=== PATIENT | male | born 1960 | race American Indian/Alaskan Native ===

== ENCOUNTER 2021-06-05 09:11 | Inpatient (IN) ==
[2021-06-05] MEDS ORDERED: IOPAMIDOL 100 ML BOTTLE IV ONE (09:12)
[2021-06-05] MEDS ORDERED: KETOROLAC 30 MG/ML VIAL IV ONE (09:42)
[2021-06-05] MEDS ORDERED: 0.9 % SODIUM CHLORIDE 1,000 ML IV ONE (09:42)
[2021-06-05 09:56] LABS: POC Creatinine 0.8 mg/dL (0.6-1.2)
[2021-06-05 10:36] LABS: Basophils # (Auto) 0.07 K/mcL (0.00-0.30); Basophils % (Auto) 0.7 % (0.0-2.0); Eosinophils # (Auto) 0.13 K/mcL (0.00-0.70); Eosinophils % (Auto) 1.3 % (0.0-7.0); Hemoglobin 14.4 g/dL (13.7-17.5); Lymphocytes # (Auto) 0.98 K/mcL (1.50-4.80); Lymphocytes % (Auto) 9.5 % (15.5-49.0); Mean Cell Volume 88.6 fL (80.0-100.0); Mean Corpuscular HGB Conc 34.3 g/dL (31.0-36.0); Mean Platelet Volume 10.1 fL (7.4-10.4); Monocytes # (Auto) 0.49 K/mcL (0.10-0.90); Monocytes % (Auto) 4.8 % (1.0-12.0); Neutrophils % (Auto) 83.7 % (38.0-78.0); Platelet Count 177 K/mcL (140-440); RBC 4.74 M/mcL (4.63-6.08); Red Cell Distribution Width 13.9 % (11.5-14.5); WBC 10.3 K/mcL (4.5-11.0)
[2021-06-05 11:01] LABS: ALT/SGPT 46 U/L (<40); AST/SGOT 70 U/L (<40); Albumin 3.8 gm/dL (3.2-5.2); Albumin/Globulin Ratio 1.2 (1.0-2.3); Alkaline Phosphatase 143 U/L (39-117); Bilirubin,Total 1.3 mg/dL (0.1-1.0); Blood Urea Nitrogen 8 mg/dL (8-23); Calcium 8.6 mg/dL (8.6-10.4); Carbon Dioxide 19 mmol/L (22-30); Chloride 108 mmol/L (96-108); Globulin 3.2 gm/dL (2.2-3.7); Glomerular Filtration Rate 96; Glucose 114 mg/dL (70-105)
--- NOTE | 2021-06-05 11:03 | Cat Scan Report ---
CLINICAL INFORMATION: Right upper quadrant pain COMPARISON: None. TECHNIQUE: Following enteric contrast, 80 cc of Isovue-370 were injected intravenously, and 60 seconds later, 0.625 mm helical slices were obtained from the mid heart through the subtrochanteric regions. Following reconstruction, 2.5 mm sagittal, coronal and axial reformatted images were processed and reviewed at bone, lung and soft tissue windows. Five minutes later, 0.625 mm helical slices were obtained from the mid heart through the kidneys and viewed at soft tissue windows.The exam was performed using radiation dose optimization techniques including, but not limited to, automated exposure control, adjustment of the mA and/or kV according to patient size and use of iterative reconstruction technique. FINDINGS: The lung bases show mild chronic bronchitis with scattered scarring and/or atelectasis. There are no effusions. The visualized heart is grossly normal in size Abdominal images show multiple small stones layering dependently within the gallbladder. Gallbladder is mildly enlarged. Scattered calcification within the gallbladder wall suggests porcelain gallbladder-no evidence of cholecystitis. The intrahepatic, common hepatic and common bile ducts are normal caliber: CBD is 5 mm. Hepatic cirrhosis is noted diminutive liver with asymmetric caudate lobe enlargement, or dural surface irregularity and inhomogeneous attenuation . No evidence of hepatoma. Portal hypertension noted with dilatation of the portal vein and varices in the perisplenic, perigastric and periesophageal regions. There is also recanalization umbilical vein. The spleen is normal in size. Both kidneys, adrenal glands, pancreas and aorta, including aortic branches are normal in size configuration and attenuation without focal lesion. There is no free air, free fluid or adenopathy. Images through the pelvis show prostatic seminal vesicles and urinary bladder are normal. The stomach and small bowel are grossly normal. Appendix is not identified with certainty, but no abnormality in the appendix region. Scattered sigmoid diverticula noted-large bowel otherwise normal. Bone windows show degeneration lumbar spine, but no focal osseous lesion. IMPRESSION: 1. Cholelithiasis. No CT evidence for associated cholecystitis. 2. Cirrhosis with portal hypertension and varices in the paraesophageal, gastric and splenic region. Recanalization of the umbilical vein. No ascites. Spleen remains normal in size. 3. Sigmoid diverticulosis, but no evidence of diverticulitis. Interpreted and Authenticated by: Leonard Baca 06/05/21
--- NOTE | 2021-06-05 12:25 | Ultrasound Report ---
CLINICAL INFORMATION: Right upper quadrant pain COMPARISON: None. FINDINGS: Multiple stones present within the gallbladder. Gallbladder wall is normal thickness-3 mm. No focal tenderness over the gallbladder. Common bile duct is normal with 5 mm. Liver is diminutive with irregular cortical surface with inhomogeneous echotexture compatible with known cirrhosis. No evidence of hepatoma. Recanalized umbilical vein noted with mild enlargement of the portal vein. No ascites. Both kidneys, spleen, pancreas and aorta are normal. IMPRESSION: 1. Cholelithiasis. No sonographic evidence of cholecystitis. Common bile duct is normal caliber. 2. Cirrhosis Interpreted and Authenticated by: Leonard Baca 06/05/21
--- NOTE | 2021-06-05 13:30 | Internal Med History&Physical ---
HPI History of Present Illness Patient information: Note initiated : 06/05/21 at 1:27 pm Service Date, if different from initiated Date: [] Patient: Blane Gibson a 60 y/o M admitted on for abd pain. Chief Complaint: [abdominal pain] Chief complaint: abdominal pain History of present illness: Mr. Gibson is a 60 year old M history of alcoholism quit alcohol drinking 6 years ago, alcoholic cirrhosis with portal hypertension's, marijuana smoker, presenting with 1 day history of acute onset epigastric abdominal pain. No prior recent similar episode. This morning at around 530 he woke up and after having a bowel movement, he started to have acute onset epigastric abdominal pain. The severity of the pain was graded at 8 out of 10. It was pressure-like and punching in nature, constant. No associated alleviating or exacerbating factors. The pain would also radiates to the right upper quadrant abdomen. Denies any nausea vomiting diarrhea or constipation's. He is also committing of chills but denies any fever or diaphoresis. No associated trauma or injury. He has some outside food last night but the son who also ate the same food is totally asymptomatic. Labs significant for lack of leukocytosis with WBC 10.3. Total bili 1.3, AST ALT 70 and 46, respectively. Alkaline phosphatase 143. Lipase 416. CT of the abdomen and pelvis shows cholelithiasis with no CT evidence of associated Flak[place] cystitis. It also shows cirrhosis with portal hypertension and varices in the paraesophageal gastric and splenic region. No ascites. Spleen remains normal in size. Sigmoid diverticulosis with no evidence of diverticulitis. Abdominal ultrasound again showing cholelithiasis with no sonographic evidence of cholecystitis. Common bile duct is normal caliber. Again it shows cirrhosis. Constitutional Constitutional: Absent chills, excessive sweating, fatigue, fever(s) or weakness EENT Eyes: Absent blurry vision, change in vision, loss of vision or other visual disturbances Ears: Absent decreased hearing or tinnitus Nose, mouth and throat: Absent abnormal hearing, dry mouth, headache(s), nasal congestion or sore throat Cardiovascular Cardiovascular: Absent chest pain, chest pain at rest, edema, irregular heart rhythm or palpatations Respiratory Respiratory: Absent cough, dyspnea or wheezing Gastrointestinal Gastrointestinal: Present abdominal pain; Absent constipation, diarrhea, nausea or vomiting Musculoskeletal Musculoskeletal: Absent back pain, deformity, limited range of motion, muscle cramps, muscle weakness or numbness Integumentary Integumentary: Absent lesions, rash or wounds Neurological Neurological: Absent focal weakness, headache(s) or numbness Psychiatric Psychiatric: Absent anxiety, depression or hallucinations PFSH PFSH All Active Problems (Updated 06/05/21 @ 13:34 by Prasanna Rabago MD) Alcoholic cirrhosis of liver without ascites (Acute) Obesity (BMI 30.0-34.9) (Acute) Gallstone pancreatitis (Acute) Cellulitis and abscess of leg (Acute) Medical History (Updated 06/05/21 @ 13:34 by Prasanna Rabago MD) Cellulitis and abscess of leg MEDS/ALLERGIES Home Medications and Allergies Home Medications Medication Instructions Recorded Confirmed Type No Known Home Meds 06/05/21 06/05/21 History Allergies Allergy/AdvReac Type Severity Reaction Status Date / Time No Known Drug Allergies Allergy Verified 06/05/21 09:15 EXAM Constitutional Vitals: Temp Pulse Resp BP Pulse Ox 36.9 C 59 L 22 132/73 93 06/05/21 09:12 06/05/21 13:18 06/05/21 09:12 06/05/21 13:16 06/05/21 13:18 General appearance: cooperative and no acute distress Head Head exam: Present atraumatic and normocephalic Eye Eye exam: Present EOMI and PERRL Additional comments: Scrotal icterus ENT ENT exam: Present mucous membranes moist, normal exam and normal external ear exam Neck Neck exam: Present normal inspection; Absent lymphadenopathy, tenderness or thyromegaly Respiratory Respiratory exam: Absent accessory muscle use, respiratory distress or wheezes Cardiovascular Cardiovascular exam: Present normal rate and rhythm; Absent JVD GI/Abdominal GI/Abdominal exam: Present normal bowel sounds, soft and tenderness; Absent distended, guarding, organomegaly or rebound Additional comments: Tenderness to palpations in epigastrium, negative for guarding rebound tenderness. Nondistended abdomen. No fluid wave. No caput medusae. Rectal Rectal exam: Present deferred Extremities Exam Extremities exam: Present full ROM, normal capillary refill and normal inspection; Absent tenderness Neurological Exam Neurological exam: Present alert, CN II-XII intact and oriented X3; Absent motor sensory deficit Psychiatric Psychiatric exam: Present normal affect and normal mood; Absent anxious or depressed Skin Skin exam: Present dry and intact DATA Data Completed and Pending Labs: Labs from last 24 hours 06/05/21 06/05/21 09:45 09:45 WBC 10.3 RBC 4.74 Hgb 14.4 Hct 42.0 MCV 88.6 MCH 30.4 MCHC 34.3 RDW 13.9 Plt Count 177 MPV 10.1 Neut % (Auto) 83.7 H Lymph % (Auto) 9.5 L [place] % (Auto) 4.8 Eos % (Auto) 1.3 Baso % (Auto) 0.7 Lymph # (Auto) 0.98 L [place] # (Auto) 0.49 Eos # (Auto) 0.13 Baso # (Auto) 0.07 Absolute Neutrophils 8.62 H Sodium 139 Potassium 3.4 Chloride 108 Carbon Dioxide 19 L Anion Gap 12.0 BUN 8 Creatinine 0.8 POC Creatinine 0.8 GFR Calculation 96 Glucose 114 H Calcium 8.6 Total Bilirubin 1.3 H AST 70 H ALT 46 H Alkaline Phosphatase 143 H Total Protein 7.0 Albumin 3.8 Globulin 3.2 Albumin/Globulin Ratio 1.2 Lipase 416 H A/P Assessment and plan (1) Gallstone pancreatitis: Status: Acute (2) Obesity (BMI 30.0-34.9): Status: Acute (3) Alcoholic cirrhosis of liver without ascites: Status: Acute Narrative A/P Narrative: Assessment and Plans: 1. Gallstone pancreatitis: Admit to inpatient med surg NPO with IV fluid, NS@100cc/hr, lower rate than otherwise due to history of cirrhosis, trying to avoid ascites Consult general surgery, Dr. Santizo, recs. appreciated. Probably not a good surgical candidate due to elevated bleeding risk from cirrhosis and portal HTN [place] PRN moderate pain Morphine IV PRN severe pain Zofran IV PRN nausea vomiting CMP in the morning to trend LFTs 2. Alcoholic cirrhosis without ascites: CMP in the morning to trend LFTs 3. Obesity BMI 30.0-34.9: Front Facer patient on life style modifications including regular exercise and h ealthy diet in order to lose weight GI ppx: oral PPI DVT ppx: Lovenox Code status: Full Prognosis: stable Disposition: inpatient med surg Time Spent With Patient Time: Total time spent is greater than 50% in coordination of care (as documented) at patient's floor/unit and/or counseling patient: Total time spent with greater than 50% in coordination of care (as documented) at patient's floor/unit and/or counseling patient:: Greater than 35 minutes
--- NOTE | 2021-06-05 13:59 | General Surgery Consult Note ---
HPI Data of Consult Consult date: 06/05/21 Requesting physician: Prasanna Rabago Primary Care Provider: ISAMAR Godfrey Consult Narrative Patient Information: Note initiated : 06/05/21 at 1:54 pm Service Date, if different from initiated Date: [] Patient: Blane Gibson 60 y/o M admitted on for abd pain. Chief Complaint: [] Chief complaint: Abdominal pain Reason for consult: Acute pancreatitis cc:: CC: 60-year-old male who is seen in the emergency room for acute abdominal pain. He awakened this morning with mild nausea and epigastric with right upper quadrant pain. He states that he tried to drink coffee but had poor taste. He had nausea but no vomiting. He was seen in the emergency room where labs revealed minimal elevation of bilirubin AST, ALT, alkaline phosphatase. CT of the abdomen shows advanced cirrhotic liver disease with extensive varices and recanalization of the veins of the abdominal wall including the umbilical vein. He has evidence of small gallstones but no inflammation around the gallbladder and no dilation of the ducts. This was confirmed by ultrasound. He does not have any right upper quadrant tenderness. Patient has a long history of heavy alcohol use but states that he has not had any alcohol for a few years. He does not remember having pancreatitis in the past. Biliary ducts by ultrasound are normal. Serum lipase is 416. PFSH PFSH All Active Problems (Updated 06/05/21 @ 14:03 by Digna Santizo MD) Cholelithiasis (Acute) Acute pancreatitis (Acute) Alcoholic cirrhosis of liver without ascites (Acute) Obesity (BMI 30.0-34.9) (Acute) Gallstone pancreatitis (Acute) Cellulitis and abscess of leg (Acute) Medical History (Updated 06/05/21 @ 14:03 by Digna Santizo MD) Cellulitis and abscess of leg MEDS/ALLERGIES Home Medications and Allergies Home Medications Medication Instructions Recorded Confirmed Type No Known Home Meds 06/05/21 06/05/21 History Allergies Allergy/AdvReac Type Severity Reaction Status Date / Time No Known Drug Allergies Allergy Verified 06/05/21 09:15 Physical Examination Vital Signs Vital signs: Temp Pulse Resp BP Pulse Ox 98.5 F 59 L 22 132/73 93 06/05/21 09:12 06/05/21 13:18 06/05/21 09:12 06/05/21 13:16 06/05/21 13:18 General physical appearance General physical exam: well developed, well nourished, no distress, moderate pain and obese Eyes Eye exam: PERRL and normal ocular movement; negative icteric ENT ENT exam: normal mucosa, no hearing loss, no congestion and poor retirement Head Head exam IM: Present atraumatic, normal inspection and normocephalic Neck Neck exam: no masses, no bruits, trachea midline, no lymphadenopathy and no venous distension Cardiovascular Cardiovascular exam IM: Present normal rate and rhythm, RRR, +S1 and +S2; Absent gallop or JVD Respiratory Respiratory exam: normal expansion, normal respiratory effort and clear to auscultation Abdomen Abdomen: Present soft and tender (Mild epigastric and left upper quadrant tenderness; no guarding or rebound; no right upper quadrant tenderness) Integumentary Integumentary: Present no rash, no growths and no abnormal pigmentation Musculoskeletal Musculoskeletal: Present normal gait and normal posture Psychiatric Psychiatric: Present oriented to time, oriented to person, oriented to place, speech is normal and memory intact Results Labs Result diagrams: 06/05/21 09:45 06/05/21 09:45 Labs: Abnormal lab results 06/05/21 06/05/21 Range/Units 09:45 09:45 Neut % (Auto) 83.7 H (38.0-78.0) % Lymph % (Auto) 9.5 L (15.5-49.0) % Lymph # (Auto) 0.98 L (1.50-4.80) K/mcL Absolute Neutrophils 8.62 H (1.80-8.00) K/mcL Carbon Dioxide 19 L (22-30) mmol/L Glucose 114 H (70-105) mg/dL Total Bilirubin 1.3 H (0.1-1.0) mg/dL AST 70 H (<40) U/L ALT 46 H (<40) U/L Alkaline Phosphatase 143 H (39-117) U/L Lipase 416 H (7-60) U/L Diabetes panel 06/05/21 Range/Units 09:45 Sodium 139 (133-145) mmol/L Potassium 3.4 (3.3-5.1) mmol/L Chloride 108 (96-108) mmol/L Carbon Dioxide 19 L (22-30) mmol/L BUN 8 (8-23) mg/dL Creatinine 0.8 (0.7-1.2) mg/dL Glucose 114 H (70-105) mg/dL Calcium 8.6 (8.6-10.4) mg/dL AST 70 H (<40) U/L ALT 46 H (<40) U/L Alkaline Phosphatase 143 H (39-117) U/L Total Protein 7.0 (5.9-8.4) gm/dL Albumin 3.8 (3.2-5.2) gm/dL Calcium panel 06/05/21 Range/Units 09:45 Calcium 8.6 (8.6-10.4) mg/dL Albumin 3.8 (3.2-5.2) gm/dL Pituitary panel 06/05/21 Range/Units 09:45 Sodium 139 (133-145) mmol/L Potassium 3.4 (3.3-5.1) mmol/L Chloride 108 (96-108) mmol/L Carbon Dioxide 19 L (22-30) mmol/L BUN 8 (8-23) mg/dL Creatinine 0.8 (0.7-1.2) mg/dL Glucose 114 H (70-105) mg/dL Calcium 8.6 (8.6-10.4) mg/dL Adrenal panel 06/05/21 Range/Units 09:45 Sodium 139 (133-145) mmol/L Potassium 3.4 (3.3-5.1) mmol/L Chloride 108 (96-108) mmol/L Carbon Dioxide 19 L (22-30) mmol/L BUN 8 (8-23) mg/dL Creatinine 0.8 (0.7-1.2) mg/dL Glucose 114 H (70-105) mg/dL Calcium 8.6 (8.6-10.4) mg/dL Total Bilirubin 1.3 H (0.1-1.0) mg/dL AST 70 H (<40) U/L ALT 46 H (<40) U/L Alkaline Phosphatase 143 H (39-117) U/L Total Protein 7.0 (5.9-8.4) gm/dL Albumin 3.8 (3.2-5.2) gm/dL All other labs normal. A/P Assessment and plan (1) Acute pancreatitis: Status: Acute (2) Alcoholic cirrhosis of liver without ascites: Status: Acute (3) Obesity (BMI 30.0-34.9): Status: Acute (4) Cholelithiasis: Status: Acute Narrative A/P Narrative: Patient does not have any history or clinical findings to suggest biliary pancreatitis. The minimal elevation in transaminases is probably related to his primary cirrhotic liver disease rather than biliary ductal disease. His hepatic and common hepatic ducts are normal. Recommend medical treatment of his pancreatitis with delayed consideration for cholecystectomy since the potential for catastrophic results in the presence of advanced cirrhotic liver disease is extremely high. If he should need to have cholecystectomy it should be performed at a tertiary center with multiple specialties available including hepatology, hematology, advanced blood bank and multiple surgeons. Time Spent With Patient Time: Total time spent is greater than 50% in coordination of care (as documented) at patient's floor/unit and/or counseling patient:
[2021-06-05] MEDS ORDERED: morphine 4 MG/ML VIAL IV PRN (15:24)
[2021-06-05] MEDS ORDERED: HYDROcodone/APAP 5/325MG TABLET PO PRN (15:24)
[2021-06-05] MEDS ORDERED: ZOLPIDEM 5 MG TABLET PO PRN (15:24)
[2021-06-05] MEDS ORDERED: ONDANSETRON 4 MG/2 ML VIAL IV PRN (15:24)
[2021-06-05] MEDS ORDERED: IPRATROPIUM/ALBUTEROL 3 ML AMPUL.NEB NEB PRN (15:24)
[2021-06-05] MEDS ORDERED: ACETAMINOPHEN 325 MG TABLET PO PRN (15:24)
[2021-06-05] MEDS: 0.9 % SODIUM CHLORIDE 1,000 ML IV SCH (15:43)
[2021-06-05] MEDS: 0.9 % SODIUM CHLORIDE 10 ML SYRINGE IV SCH ×2 (15:43→21:07)
[2021-06-05] MEDS: SENNOSIDES 1 TABLET PO SCH (21:06)
[2021-06-05] MEDS: PANTOPRAZOLE 40 MG TABLET PO SCH (21:06)
[2021-06-05] MEDS: DOCUSATE SODIUM 100 MG CAPSULE PO SCH (21:06)
[2021-06-06] MEDS: 0.9 % SODIUM CHLORIDE 1,000 ML IV SCH ×3 (01:20→21:11)
--- NOTE | 2021-06-06 02:00 | Emergency Department Note ---
Abdominal Pain HPI General Chief Complaint: Abdominal Pain Stated Complaint: abd. pain Time Seen by Provider: 06/05/21 09:42 Source: patient and family (Son contributed to history) Mode of arrival: ambulatory Limitations: no limitations History of Present Illness HPI Narrative: Narrative: 60-year-old male presents emerged department accompanied by his son because of acute abdominal pain that began approximately 05 day of presentation patient described the pain as an 8 out of 10 sharp pain located primarily in the epigastric area and right upper quadrant. There is no associated nausea or vomiting at this time. Pain is constant. Nothing makes it better or worse. No radiation of the pain to the back. Denies prior similar episode. Patient does have significant alcohol and opiate addiction history but ceased using them 6 years ago. Related Data Home Medications Medication Instructions Recorded Confirmed No Known Home Meds 06/05/21 06/05/21 Allergies Allergy/AdvReac Type Severity Reaction Status Date / Time No Known Drug Allergies Allergy Verified 06/05/21 09:15 Review of Systems ROS ROS Narrative: Narrative: Constitutional: Denies fever ENT ED: Denies throat pain or rhinorrhea Cardiovascular: Denies chest pain Respiratory: Denies shortness of breath or cough Gastrointestinal: Reports abdominal pain; Denies nausea Genitourinary: Denies dysuria Musculoskeletal: Denies back pain Integumentary: Denies rash Neurological: Denies headache Psychiatric: Denies anxiety Hematological/Lymphatic: Denies easy bleeding Allergic/Immunologic: Denies facial swelling PFSH Narrative Patient History Narrative: Narrative: Medical/Surgical/Family History All Active Problems (Updated 06/06/21 @ 02:11 by Kingsley Redman MD) Acute gallstone pancreatitis (Acute) Cholelithiasis (Acute) Cholelithiasis (Acute) Acute pancreatitis (Acute) Alcoholic cirrhosis of liver without ascites (Acute) Obesity (BMI 30.0-34.9) (Acute) Gallstone pancreatitis (Acute) Cellulitis and abscess of leg (Acute) Medical History Cellulitis and abscess of leg Social History Smoking Status: Former smoker Exam Narrative Narrative: Narrative: General is a well-developed well-nourished older man lying in bed in distress who appears stoic. General Limitations: no limitations General appearance: Present alert and in distress Head Head: Present atraumatic and normocephalic Eye Eye: Present normal appearance and EOMI Neck Neck: Present normal inspection and trachea midline Respiratory Respiratory: Present normal lung sounds bilaterally; Absent respiratory distress, rales/crackles or wheezes Cardiovascular Cardiovascular: Present regular rate and normal rhythm Adbominal Abdominal: Present soft and tenderness (Primarily right upper quadrant and epigastric area without rebound referred or guarding.) Extremities Extremities: Present normal inspection and full ROM; Absent tenderness Back Back: Present normal inspection Neurological Neurological: Present alert and oriented X3 Psychiatric Psychiatric: Present normal affect and normal mood Skin Skin: Present warm (WNL) and dry Course Vital Signs Vital signs: Vital Signs Temperature 98.5 F 06/05/21 09:12 Pulse Rate 66 06/05/21 09:12 Respiratory Rate 22 06/05/21 09:12 Blood Pressure 116/65 06/05/21 09:12 Pulse Oximetry (%) 96 06/05/21 09:12 Temperature 98.3 F 06/05/21 22:47 Pulse Rate 60 06/05/21 22:47 Respiratory Rate 20 06/05/21 22:47 Blood Pressure 119/72 06/05/21 22:47 Pulse Oximetry (%) 98 06/05/21 22:47 MDM MDM Narrative Medical decision making narrative: Narrative: 60-year-old male presents to the emerge department with acute right upper quadrant and epigastric abdominal pain. Differential diagnosis includes acute biliary colic, acute cholecystitis, ribeiro creatitis, peptic ulcer disease, other pathology. IV was obtained and patient was bolused a liter of normal saline. Patient was medicated with Toradol [address] scan was obtained which revealed cholelithiasis without cholecystitis. No pancreatic abnormality noted. Blood work returned with elevated lipase of over 400 and mildly elevated LFTs. Patient also had portal vein hypertension with varices. Case was discussed with Dr. Rabago the hospitalist on duty. He agreed to admit the patient. He requested I consult surgery. I spoke to Dr. Rolando Santizo who suggested the patient did not have acute cholecystitis and was a high risk surgical case because of the portal vein hypertension and lower esophageal varices which would likely require surgery at a higher level facility if any surgery was required at all. Patient had normal white count and normal hemoglobin. Patient had normal electrolytes with a mildly low bicarb. Glucose minimally elevated. Lab Data Result diagrams: 06/05/21 09:45 06/05/21 09:45 Labs: Lab Results 06/05/21 06/05/21 Range/Units 09:45 09:45 WBC 10.3 (4.5-11.0) K/mcL RBC 4.74 (4.63-6.08) M/mcL Hgb 14.4 (13.7-17.5) g/dL Hct 42.0 (40.1-51.0) % MCV 88.6 (80.0-100.0) fL MCH 30.4 (26.0-34.0) pg MCHC 34.3 (31.0-36.0) g/dL RDW 13.9 (11.5-14.5) % Plt Count 177 (140-440) K/mcL MPV 10.1 (7.4-10.4) fL Neut % (Auto) 83.7 H (38.0-78.0) % Lymph % (Auto) 9.5 L (15.5-49.0) % [place] % (Auto) 4.8 (1.0-12.0) % Eos % (Auto) 1.3 (0.0-7.0) % Baso % (Auto) 0.7 (0.0-2.0) % Lymph # (Auto) 0.98 L (1.50-4.80) K/mcL [place] # (Auto) 0.49 (0.10-0.90) K/mcL Eos # (Auto) 0.13 (0.00-0.70) K/mcL Baso # (Auto) 0.07 (0.00-0.30) K/mcL Absolute Neutrophils 8.62 H (1.80-8.00) K/mcL Sodium 139 (133-145) mmol/L Potassium 3.4 (3.3-5.1) mmol/L Chloride 108 (96-108) mmol/L Carbon Dioxide 19 L (22-30) mmol/L Anion Gap 12.0 (8.0-16.0) BUN 8 (8-23) mg/dL Creatinine 0.8 (0.7-1.2) mg/dL POC Creatinine 0.8 (0.6-1.2) mg/dL GFR Calculation 96 Glucose 114 H (70-105) mg/dL Calcium 8.6 (8.6-10.4) mg/dL Total Bilirubin 1.3 H (0.1-1.0) mg/dL AST 70 H (<40) U/L ALT 46 H (<40) U/L Alkaline Phosphatase 143 H (39-117) U/L Total Protein 7.0 (5.9-8.4) gm/dL Albumin 3.8 (3.2-5.2) gm/dL Globulin 3.2 (2.2-3.7) gm/dL Albumin/Globulin Ratio 1.2 (1.0-2.3) Lipase 416 H (7-60) U/L ED POC Tests ED POC Tests: MANOLO - SARS Antigen Negative Discharge Plan Patient/Caregiver Discharge Instructions Pt seen by DIRECTOR MEDICAL SURGICAL/PA only: No Clinical Impression: Acute gallstone pancreatitis Cholelithiasis Qualifiers: Cholelithiasis location: gallbladder Cholecystitis presence: without cholecystitis Patient Disposition: Xfer As Inpt ([facility]) Condition: Fair Discharge Date/Time: 06/05/21 15:15
[2021-06-06] MEDS: 0.9 % SODIUM CHLORIDE 10 ML SYRINGE IV SCH ×3 (05:23→21:05)
[2021-06-06 07:03] LABS: Basophils # (Auto) 0.06 K/mcL (0.00-0.30); Basophils % (Auto) 1.2 % (0.0-2.0); Eosinophils # (Auto) 0.26 K/mcL (0.00-0.70); Eosinophils % (Auto) 5.4 % (0.0-7.0); Hematocrit 39.7 % (40.1-51.0); Hemoglobin 13.3 g/dL (13.7-17.5); Lymphocytes # (Auto) 1.39 K/mcL (1.50-4.80); Lymphocytes % (Auto) 28.7 % (15.5-49.0); Mean Cell Volume 90.4 fL (80.0-100.0); Mean Corpuscular HGB Conc 33.5 g/dL (31.0-36.0); Mean Platelet Volume 10.4 fL (7.4-10.4); Monocytes # (Auto) 0.32 K/mcL (0.10-0.90); Monocytes % (Auto) 6.6 % (1.0-12.0); Neutrophils % (Auto) 58.1 % (38.0-78.0); Platelet Count 161 K/mcL (140-440); RBC 4.39 M/mcL (4.63-6.08); Red Cell Distribution Width 13.9 % (11.5-14.5); WBC 4.9 K/mcL (4.5-11.0)
[2021-06-06 07:48] LABS: ALT/SGPT 40 U/L (<40); AST/SGOT 63 U/L (<40); Albumin 3.2 gm/dL (3.2-5.2); Albumin/Globulin Ratio 1.1 (1.0-2.3); Alkaline Phosphatase 118 U/L (39-117); Bilirubin,Total 1.2 mg/dL (0.1-1.0); Blood Urea Nitrogen 10 mg/dL (8-23); Calcium 7.8 mg/dL (8.6-10.4); Carbon Dioxide 19 mmol/L (22-30); Chloride 111 mmol/L (96-108); Globulin 2.8 gm/dL (2.2-3.7); Glomerular Filtration Rate 96; Glucose 79 mg/dL (70-105); Phosphorous 2.4 mg/dL (2.5-4.5)
[2021-06-06] MEDS: ENOXAPARIN 40 MG/0.4 ML SYRINGE SQ SCH (09:16)
[2021-06-06] MEDS: DOCUSATE SODIUM 100 MG CAPSULE PO SCH ×2 (09:16→21:05)
--- NOTE | 2021-06-06 10:12 | Internal Med Progress Note ---
SUBJECTIVE Subjective Patient information: Note initiated : 06/06/21 at 10:09 am Service Date, if different from initiated Date: [] Patient: Blane Gibson 60 y/o M admitted on 06/05/21 for abd pain. Chief Complaint: [] Interval history: Mr. Gibson is a 60 year old M history of alcoholism quit alcohol drinking 6 years ago, alcoholic cirrhosis with portal hypertension's, marijuana smoker, presenting with 1 day history of acute onset epigastric abdominal pain. No prior recent similar episode. This morning at around 530 he woke up and after having a bowel movement, he started to have acute onset epigastric abdominal pain. The severity of the pain was graded at 8 out of 10. It was pressure-like and punching in nature, constant. No associated alleviating or exacerbating factors. The pain would also radiates to the right upper quadrant abdomen. Denies any nausea vomiting diarrhea or constipation's. He is also committing of chills but denies any fever or diaphoresis. No associated trauma or injury. He has some outside food last night but the son who also ate the same food is totally asymptomatic. Labs significant for lack of leukocytosis with WBC 10.3. Total bili 1.3, AST ALT 70 and 46, respectively. Alkaline phosphatase 143. Lipase 416. CT of the abdomen and pelvis shows cholelithiasis with no CT evidence of associated Flakita cystitis. It also shows cirrhosis with portal hypertension and varices in the paraesophageal gastric and splenic region. No ascites. Spleen remains normal in size. Sigmoid diverticulosis with no evidence of diverticulitis. Abdominal ultrasound again showing cholelithiasis with no sonographic evidence of cholecystitis. Common bile duct is normal caliber. Again it shows cirrhosis. 06/06: Denies any abdominal pain. Denies any nausea or vomiting. LFTs improving. As per Dr. Santizo, patient is not a surgical candidate. Will continue IV fluid and will start clear liquid diet with advancement as tolerated. Pertinent ROS: Denies any abdominal pain. Denies any nausea or vomiting. Constitutional Vitals: Vital Signs Temp Pulse Resp BP Pulse Ox 36.6 C 55 L 24 H 110/66 94 06/06/21 07:40 06/06/21 07:40 06/06/21 07:40 06/06/21 07:40 06/06/21 07:40 Period Temp Pulse Resp BP Sys/Delgado Pulse Ox Last 24 Hr 36.6 C-37.2 C 50-72 18-24 110-132/66-98 93-99 Intake and Output 06/05/21 06/06/21 06/06/21 21:59 05:59 13:59 Intake Total 0 962 Output Total 325 400 200 Balance -325 562 -200 Weight 105.551 kg Intake & Output: Intake & Output 06/05/21 06/06/21 06/06/21 21:59 05:59 13:59 Intake Total 0 962 Output Total 325 400 200 Balance -325 562 -200 Weight 105.551 kg Intake: IV 962 Sodium Chloride 0.9% 1,000 ml @ 962 100 mls/hr IV .Q10H [facility] Rx#: [id number] Oral 0 0 Output: Void Amount 325 400 200 Other: Urine Appearance Clear Clear Clear Urine Color Dark Yellow Dark Yellow Bright Yellow Urine Odor Normal Head Head exam: Present atraumatic and normal inspection Eye Eye exam: Present normal appearance ENT ENT exam: Present mucous membranes moist, normal exam and normal external ear exam Neck Neck exam: Present normal inspection Respiratory Respiratory exam: Present normal respiratory exam Cardiovascular Cardiovascular exam: Present normal rate and rhythm GI/Abdominal GI/Abdominal exam: Present normal bowel sounds Back Exam Back exam: Present normal inspection Neurological Exam Neurological exam: Present alert and oriented X3 Skin Skin exam: Present intact and warm OBJ DATA Labs CBC & Chem 7: 06/06/21 05:43 06/06/21 05:43 Labs: Abnormal Lab Results 06/06/21 06/06/21 06/05/21 05:43 05:43 09:45 RBC 4.39 L Hgb 13.3 L Hct 39.7 L Neut % (Auto) Lymph % (Auto) Lymph # (Auto) 1.39 L Absolute Neutrophils Chloride 111 H Carbon Dioxide 19 L 19 L Glucose 114 H Calcium 7.8 L Phosphorus 2.4 L Total Bilirubin 1.2 H 1.3 H AST 63 H 70 H ALT 40 H 46 H Alkaline Phosphatase 118 H 143 H Lipase 416 H 06/05/21 09:45 RBC Hgb Hct Neut % (Auto) 83.7 H Lymph % (Auto) 9.5 L Lymph # (Auto) 0.98 L Absolute Neutrophils 8.62 H Chloride Carbon Dioxide Glucose Calcium Phosphorus Total Bilirubin AST ALT Alkaline Phosphatase Lipase Meds: Medications Acetaminophen (Acetaminophen 325 Mg Tablet) 325 mg PO Q6HP PRN; Protocol PRN Reason: Per Pain Protocol/Fever > 101 Hydrocodone Bitart/Acetaminophen (Hydrocodone/Apap 5/325mg Tablet) 1 tab PO Q6HP PRN; Protocol PRN Reason: Pain Albuterol/Ipratropium (Ipratropium/Albuterol 3 Ml Ampul.Neb) 3 ml NEB Q4HRT PRN PRN Reason: Wheezing Docusate Sodium (Docusate Sodium 100 Mg Capsule) 100 mg PO BID [facility] Last Admin: 06/06/21 09:16 Dose: 100 mg Documented by: Enoxaparin Sodium (Enoxaparin 40 Mg/0.4 Ml Syringe) 40 mg SQ DAILY [facility] Last Admin: 06/06/21 09:16 Dose: 40 mg Documented by: Sodium Chloride (Sodium Chloride 0.9%) 1,000 mls @ 100 mls/hr IV .Q10H [facility] Last Admin: 06/06/21 01:20 Dose: 100 mls/hr Documented by: Morphine Sulfate (Morphine 4 Mg/Ml Vial) 4 mg IV Q4HP PRN; Protocol PRN Reason: Per Pain Protocol Ondansetron HCl (Ondansetron 4 Mg/2 Ml Vial) 4 mg IV Q6HP PRN PRN Reason: Nausea And Vomiting Pantoprazole Sodium (Pantoprazole 40 Mg Tablet) 40 mg PO HS [facility] Last Admin: 06/05/21 21:06 Dose: 40 mg Documented by: Senna (Sennosides 1 Tablet) 2 tab PO HS [facility] Last Admin: 06/05/21 21:06 Dose: 2 tab Documented by: Sodium Chloride (0.9 % Sodium Chloride 10 Ml Syringe) 10 ml IV Q8 [facility] Last Admin: 06/06/21 05:23 Dose: Not Given Documented by: Zolpidem Tartrate (Zolpidem 5 Mg Tablet) 5 mg PO HSP PRN PRN Reason: Insomnia A/P Assessment and plan (1) Gallstone pancreatitis: Status: Acute (2) Obesity (BMI 30.0-34.9): Status: Acute (3) Alcoholic cirrhosis of liver without ascites: Status: Acute Narrative A/P Narrative: Assessment and Plans: 1. Gallstone pancreatitis: Stays in inpatient med surg Clear liquid diet with advancement as tolerated NS@100cc/hr, lower rate than otherwise due to history of cirrhosis, trying to avoid ascites Consult general surgery, Dr. Santizo, recs. appreciated-->not a surgical cand idate, continue medical management [place] PRN moderate pain Morphine IV PRN severe pain Zofran IV PRN nausea vomiting CMP in the morning to trend LFTs 2. Alcoholic cirrhosis without ascites: CMP in the morning to trend LFTs 3. Obesity BMI 30.0-34.9: [employer] patient on life style modifications including regular exercise and healthy diet in order to lose weight GI ppx: oral PPI DVT ppx: Lovenox Code status: Full Prognosis: stable Disposition: inpatient med surg Time Spent With Patient Time: Total time spent is greater than 50% in coordination of care (as documented) at patient's floor/unit and/or counseling patient: Total time spent with greater than 50% in coordination of care (as documented) at patient's floor/unit and/or counseling patient:: Greater than 35 minutes QUALITY VTE Deep Vein Thrombosis/Pulmonary Embolism Present on Admission: No
[2021-06-06 11:04] LABS: Amylase 84 U/L (28-100)
--- NOTE | 2021-06-06 12:09 | Internal Med Progress Note ---
SUBJECTIVE Subjective Patient information: Note initiated : 06/07/21 at 12:07 pm Service Date, if different from initiated Date: [] Patient: Blane Gibson 60 y/o M admitted on 06/05/21 for abd pain. Chief Complaint: [] Interval history: Mr. Gibson is a 60 year old M history of alcoholism quit alcohol drinking 6 years ago, alcoholic cirrhosis with portal hypertension's, marijuana smoker, presenting with 1 day history of acute onset epigastric abdominal pain. No prior recent similar episode. This morning at around 530 he woke up and after having a bowel movement, he started to have acute onset epigastric abdominal pain. The severity of the pain was graded at 8 out of 10. It was pressure-like and punching in nature, constant. No associated alleviating or exacerbating factors. The pain would also radiates to the right upper quadrant abdomen. Denies any nausea vomiting diarrhea or constipation's. The patient also endorsed chills but denied any fever or diaphoresis. No associated trauma or injury. He has some outside food prior to admission but the son who also ate the same food is totally asymptomatic. Labs significant for lack of leukocytosis with WBC 10.3. Total bili 1.3, AST ALT 70 and 46, respectively. Alkaline phosphatase 143. Lipase 416. CT of the abdomen and pelvis shows cholelithiasis with no CT evidence of associated cholecystitis. It also showed cirrhosis with portal hypertension and varices in the paraesophageal gastric and splenic region. No ascites. Spleen remains normal in size. Sigmoid divertic ulosis with no evidence of diverticulitis. Abdominal ultrasound again showing cholelithiasis with no sonographic evidence of cholecystitis. Common bile duct is normal caliber. Again it showed liver cirrhosis. 06/06: Denies any abdominal pain. Denies any nausea or vomiting. LFTs improving. As per Dr. Santizo, patient is not a surgical candidate. Will continue IV fluid and will start clear liquid diet with advancement as tolerated. Physical exam Head: Atraumatic, normal inspection. Eyes: normal appearance, no scleral icterus. Neck: full ROM Respiratory: no respiratory distress. Cardiovascular: normal rate and rhythm, S1, S2. GI/Abdominal: soft, nontender, no guarding. Extremities: full range of motion, nontender. Neurological: CN II-XII intact, intact motor, intact sensation. Psychiatric: normal mood. Skin: warm, normal color Constitutional Vitals: Vital Signs Temp Pulse Resp BP Pulse Ox 97.7 F 59 L 22 124/72 93 06/06/21 11:45 06/06/21 11:45 06/06/21 11:45 06/06/21 11:45 06/06/21 11:45 Period Temp Pulse Resp BP Sys/Delgado Pulse Ox Last 24 Hr 97.7 F-98.9 F 50-72 18-24 110-132/66-98 93-98 Intake and Output 06/05/21 06/06/21 06/06/21 21:59 05:59 13:59 Intake Total 0 962 Output Total 325 400 200 Balance -325 562 -200 Weight 105.551 kg Intake & Output: Intake & Output 06/05/21 06/06/21 06/06/21 21:59 05:59 13:59 Intake Total 0 962 Output Total 325 400 200 Balance -325 562 -200 Weight 105.551 kg Intake: IV 962 Sodium Chloride 0.9% 1,000 ml @ 962 100 mls/hr IV .Q10H [facility] Rx#: [id number] Oral 0 0 Output: Void Amount 325 400 200 Other: Urine Appearance Clear Clear Clear Urine Color Dark Yellow Dark Yellow Bright Yellow Urine Odor Normal OBJ DATA Labs CBC & Chem 7: 06/06/21 05:43 06/06/21 05:43 Labs: Abnormal Lab Results 06/06/21 06/06/21 06/05/21 05:43 05:43 09:45 RBC 4.39 L Hgb 13.3 L Hct 39.7 L Neut % (Auto) Lymph % (Auto) Lymph # (Auto) 1.39 L Absolute Neutrophils Chloride 111 H Carbon Dioxide 19 L 19 L Glucose 114 H Calcium 7.8 L Phosphorus 2.4 L Total Bilirubin 1.2 H 1.3 H AST 63 H 70 H ALT 40 H 46 H Alkaline Phosphatase 118 H 143 H Lipase 416 H 06/05/21 09:45 RBC Hgb Hct Neut % (Auto) 83.7 H Lymph % (Auto) 9.5 L Lymph # (Auto) 0.98 L Absolute Neutrophils 8.62 H Chloride Carbon Dioxide Glucose Calcium Phosphorus Total Bilirubin AST ALT Alkaline Phosphatase Lipase Meds: Medications Acetaminophen (Acetaminophen 325 Mg Tablet) 325 mg PO Q6HP PRN; Protocol PRN Reason: Per Pain Protocol/Fever > 101 Hydrocodone Bitart/Acetaminophen (Hydrocodone/Apap 5/325mg Tablet) 1 tab PO Q6HP PRN; Protocol PRN Reason: Pain Albuterol/Ipratropium (Ipratropium/Albuterol 3 Ml Ampul.Neb) 3 ml NEB Q4HRT PRN PRN Reason: Wheezing Docusate Sodium (Docusate Sodium 100 Mg Capsule) 100 mg PO BID [facility] Last Admin: 06/06/21 09:16 Dose: 100 mg Documented by: Enoxaparin Sodium (Enoxaparin 40 Mg/0.4 Ml Syringe) 40 mg SQ DAILY [facility] Last Admin: 06/06/21 09:16 Dose: 40 mg Documented by: Sodium Chloride (Sodium Chloride 0.9%) 1,000 mls @ 100 mls/hr IV .Q10H [facility] Last Admin: 06/06/21 01:20 Dose: 100 mls/hr Documented by: Morphine Sulfate (Morphine 4 Mg/Ml Vial) 4 mg IV Q4HP PRN; Protocol PRN Reason: Per Pain Protocol Ondansetron HCl (Ondansetron 4 Mg/2 Ml Vial) 4 mg IV Q6HP PRN PRN Reason: Nausea And Vomiting Pantoprazole Sodium (Pantoprazole 40 Mg Tablet) 40 mg PO [facility] Last Admin: 06/05/21 21:06 Dose: 40 mg Documented by: Senna (Sennosides 1 Tablet) 2 tab PO [facility] Last Admin: 06/05/21 21:06 Dose: 2 tab Documented by: Sodium Chloride (0.9 % Sodium Chloride 10 Ml Syringe) 10 ml IV Q8 [facility] Last Admin: 06/06/21 05:23 Dose: Not Given Documented by: Zolpidem Tartrate (Zolpidem 5 Mg Tablet) 5 mg PO HSP PRN PRN Reason: Insomnia A/P Narrative A/P Narrative: Assessment: 60-year-old male with a history of alcohol use disorder reportedly in remission however complicated by liver cirrhosis admitted for acute pancreatitis likely secondary to gallstones. #Acute pancreatitis likely secondary to gallstone #Cholelithiasis #Liver cirrhosis secondary to alcohol #Obesity BMI 30 Plan -Analgesics as needed. -IV fluid. -Advance diet as tolerated. -Follow electrolytes and renal function. -Replace electrolytes as needed. -General surgery consulted, recommended against cholecystectomy at [facility] due to risk of liver cirrhosis related complications. -DVT ppx: Lovenox SQ -Code status: Full -Disposition: Outpatient referral to general surgery at a tertiary care center to consider cholecystectomy as the patient is at higher risk for perioperateive complications. Time Spent With Patient Time: Total time spent is greater than 50% in coordination of care (as documented) at patient's floor/unit and/or counseling patient: QUALITY VTE Deep Vein Thrombosis/Pulmonary Embolism Present on Admission: No
[2021-06-06] MEDS: SENNOSIDES 1 TABLET PO SCH (21:05)
[2021-06-06] MEDS: PANTOPRAZOLE 40 MG TABLET PO SCH (21:05)
[2021-06-07] MEDS: 0.9 % SODIUM CHLORIDE 10 ML SYRINGE IV SCH (05:42)
[2021-06-07] MEDS: DOCUSATE SODIUM 100 MG CAPSULE PO SCH (08:55)
[2021-06-07] MEDS: ENOXAPARIN 40 MG/0.4 ML SYRINGE SQ SCH (08:56)
--- NOTE | 2021-06-07 10:46 | Discharge Summary ---
Discharge Provider Provider Patient information: Note initiated : 06/07/21 at 10:43 am Service Date, if different from initiated Date: [] Patient: Blane Gibson 60 y/o M admitted on 06/05/21 for abd pain. Chief Complaint: [] Date of admission: 06/05/21 15:15 Discharge date: 06/07/21 Primary care physician: ISAMAR Godfrey Consults: 06/05/21 Consult to Physician [CONS] Stat Comment: Consulting Provider: Prasanna Rabago Reason For Exam: Physician to Consult Consult to Physician [CONS] Stat Comment: Consulting Provider: Digna aSntizo Reason For Exam: Physician to Consult Discharge Meds Discharge Medications Home Medications No Known Home Meds 06/05/21 [History Confirmed 06/06/21 Last Taken Unknown] COURSE Hospital Course Hospital course: Mr. Gibson is a 60 year old M history of alcoholism quit alcohol drinking 6 years ago, alcoholic cirrhosis with portal hypertension's, marijuana smoker, presentin g with 1 day history of acute onset epigastric abdominal pain. No prior recent similar episode. This morning at around 530 he woke up and after having a bowel movement, he started to have acute onset epigastric abdominal pain. The severity of the pain was graded at 8 out of 10. It was pressure-like and punching in nature, constant. No associated alleviating or exacerbating factors. The pain would also radiates to the right upper quadrant abdomen. Denies any nausea vomiting diarrhea or constipation's. The patient also endorsed chills but denied any fever or diaphoresis. No associated trauma or injury. He has some outside food prior to admission but the son who also ate the same food is totally asymptomatic. Labs significant for lack of leukocytosis with WBC 10.3. Total bili 1.3, AST ALT 70 and 46, respectively. Alkaline phosphatase 143. Lipase 416. CT of the abdomen and pelvis shows cholelithiasis with no CT evidence of associated cholecystitis. It also showed cirrhosis with portal hypertension and varices in the paraesophageal gastric and splenic region. No ascites. Spleen remains normal in size. Sigmoid diverticulosis with no evidence of diverticulitis. Abdominal ultrasound again showing cholelithiasis with no sonographic evidence of cholecystitis. Common bile duct is normal caliber. Again it showed liver cirrhosis. 06/06: Denies any abdominal pain. Denies any nausea or vomiting. LFTs improving. As per Dr. Santizo, patient is not a surgical candidate. Will continue IV fluid and will start clear liquid diet with advancement as tolerated. 06/07 Abdominal pain resolved, tolerated a regular diet. Discharged to home with general surgery follow up. Physical exam Head: Atraumatic, normal inspection. Eyes: normal appearance, no scleral icterus. Neck: full ROM Respiratory: no respiratory distress. Cardiovascular: normal rate and rhythm, S1, S2. GI/Abdominal: soft, nontender, no guarding. Extremities: full range of motion, nontender. Neurological: CN II-XII intact, intact motor, intact sensation. Psychiatric: normal mood. Skin: warm, normal color Discharge diagnosis: Acute gallstone pancreatitis Time Spent with Patient Time attestation: Total time spent providing and/or coordinating discharge services: EXAM Constitutional Vitals: Temp Pulse Resp BP Pulse Ox 98.4 F 59 L 22 126/73 95 06/07/21 06:48 06/07/21 06:48 06/07/21 06:48 06/07/21 06:48 06/07/21 06:48 Discharge Data Data Completed and Pending Labs on day of discharge: Labs from last 24 hours 06/06/21 05:43 Amylase 84 Lipase 21 Discharge Plan Patient/Caregiver Discharge Instructions Activity: increase activity as tolerated Diet: Regular Diet Prescriptions: No Action No Known Home Meds 0RF Follow Up Plan Follow up with: Freddie Callahan ARNP [Primary Care Provider] - Patient Disposition: Home, Self-Care Prognosis: Fair Rehab Potential: Fair Overall status at discharge: patient is progressing back to baseline Discharge Orders: Discharge Order (Routine); Ordered 06/07/21 Ordered By: Jack Rubalcava QUALITY VTE Deep Vein Thrombosis/Pulmonary Embolism Present on Admission: No
== END 2021-06-07 12:30 | disposition home or self-care (01) | DRG 439 ==
LOC: ED 09:11 → MEDSUR 15:15
PROVIDERS: ADMIT Family Medicine Adult Medicine; ATTEND Internal Medicine